=== PATIENT | female | born 2000 | race American Indian/Alaskan Native ===

== ENCOUNTER 2021-05-30 10:29 | Emergency (ER) | payer SELFPAY ==
[2021-05-30] MEDS ORDERED: SULFAMETHOXAZOLE/TRIMETHOPRIM 800/160MG DS TAB PO ONE (16:09)
[2021-05-30] MEDS ORDERED: KETOROLAC 10 MG TAB PO ONE (16:09)
[2021-05-30] MEDS ORDERED: ACETAMINOPHEN W/CODEINE 300-30 MG TAB PO ONE (16:10)
--- NOTE | 2021-05-30 16:15 | Emergency Department Report ---
- General Chief complaint: Vaginal Bleeding Stated complaint: VAG BLEEDING Time Seen by Provider: 05/30/21 15:47 Source: patient Mode of arrival: Ambulatory Limitations: No Limitations - History of Present Illness Initial comments: 21-year-old black female with no past medical history presents to the emergency department for evaluation of vaginal pain. She states that for the past 2 to 3 days that she has been having pain in her vaginal area and feels like she has a growth on the vaginal wall. She denies injury or trauma, fever, drainage, and abdominal pain. MD complaint: abscess/boil -: Gradual, days(s) Location: genitals (2-3) Severity: severe Severity scale (0 -10): 10 Quality: aching Consistency: constant Worsens with: palpation, movement Treatments Prior to Arrival: none - Related Data Previous Rx's Medication Instructions Recorded Last Taken Type Acetaminophen/Codeine [Tylenol 1 tab PO Q6H PRN #12 tab 05/30/21 Unknown Rx /Codeine # 3 tab] Ketorolac [Toradol] 10 mg PO Q6H PRN #12 tab 05/30/21 Unknown Rx Sulfamethoxazole/Trimethoprim 1 each PO BID 10 Days #20 tab 05/30/21 Unknown Rx [Bactrim DS TAB] Allergies Allergy/AdvReac Type Severity Reaction Status Date / Time No Known Allergies Allergy Unverified 05/30/21 11:42 Abscess Boil HPI - HPI Chief Complaint: Vaginal Bleeding Stated Complaint: VAG BLEEDING Time Seen by Provider: 05/30/21 15:47 Home Medications: Previous Rx's Medication Instructions Recorded Last Taken Type Acetaminophen/Codeine [Tylenol 1 tab PO Q6H PRN #12 tab 05/30/21 Unknown Rx /Codeine # 3 tab] Ketorolac [Toradol] 10 mg PO Q6H PRN #12 tab 05/30/21 Unknown Rx Sulfamethoxazole/Trimethoprim 1 each PO BID 10 Days #20 tab 05/30/21 Unknown Rx [Bactrim DS TAB] Allergies/Adverse Reactions: Allergies Allergy/AdvReac Type Severity Reaction Status Date / Time No Known Allergies Allergy Unverified 05/30/21 11:42 ED Review of Systems ROS: Stated complaint: VAG BLEEDING Other details as noted in HPI Comment: All other systems reviewed and negative Constitutional: denies: chills, fever Respiratory: denies: shortness of breath, SOB with exertion, SOB at rest Cardiovascular: denies: chest pain, palpitations, dyspnea on exertion Gastrointestinal: denies: abdominal pain, nausea, vomiting Genitourinary: denies: urgency, dysuria, frequency, hematuria, discharge Musculoskeletal: denies: back pain Neurological: denies: headache, weakness ED Past Medical Hx - Medications Home Medications: Home Medications Medication Instructions Recorded Confirmed Last Taken Type Acetaminophen/Codeine [Tylenol 1 tab PO Q6H PRN #12 tab 05/30/21 Unknown Rx /Codeine # 3 tab] Ketorolac [Toradol] 10 mg PO Q6H PRN #12 tab 05/30/21 Unknown Rx Sulfamethoxazole/Trimethoprim 1 each PO BID 10 Days #20 tab 05/30/21 Unknown Rx [Bactrim DS TAB] ED Physical Exam - General Limitations: No Limitations General appearance: alert, in no apparent distress - Head Head exam: Present: atraumatic, normocephalic - Eye Eye exam: Present: normal appearance. Absent: conjunctival injection - Neck Neck exam: Present: normal inspection. Absent: tenderness, lymphadenopathy - Respiratory Respiratory exam: Absent: respiratory distress - Cardiovascular Cardiovascular Exam: Present: regular rate - GI/Abdominal GI/Abdominal exam: Present: soft, normal bowel sounds. Absent: distended, tenderness, guarding, rebound, rigid - External exam: Present: erythema, swelling - Expanded Exam Expanded image: 1 - Noted to have abscess to area that is mostly internal measuring 3.5 to 4 cm in diameter. Area noted to be erythematous, edematous, and tender to any palpation. No drainage noted. - Extremities Exam Extremities exam: Present: normal inspection, normal capillary refill. Absent: pedal edema, joint swelling, calf tenderness - Back Exam Back exam: Present: normal inspection. Absent: CVA tenderness (R), CVA tenderness (L) - Neurological Exam Neurological exam: Present: alert, oriented X3 - Psychiatric Psychiatric exam: Present: normal affect, normal mood - Skin Skin exam: Present: warm, dry, intact, normal color ED Course Vital Signs 05/30/21 11:42 Temperature 98.3 F Pulse Rate 89 Respiratory 18 Rate Blood Pressure 119/76 [Right] O2 Sat by Pulse 100 Oximetry ED Medical Decision Making - Medical Decision Making 21-year-old black female with no past medical history presents to the emergency department for evaluation of vaginal pain. She states that for the past 2 to 3 days that she has been having pain in her vaginal area and feels like she has a growth on the vaginal wall. She denies injury or trauma, fever, drainage, and abdominal pain. Exam consistent with perineal abscess. Abscess noted to be primarily to lower vaginal wall, so will try antibiotics only with no I&D secondary to placement. Patient without any acute distress and no signs of systemic infection noted. Patient will be discharged home on 10-day course of Bactrim along with Toradol and Tylenol 3 to use as needed for pain. She had her first doses of all medications while in the emergency department. She is advised to take medications as prescribed and follow-up with primary care provider or general surgery if no improvement or worsening symptoms. She is advised to return to the emergency department for any concerning symptoms. She verbalized understanding of and agreement with plan of care. Critical care attestation.: If time is entered above; I have spent that time in minutes in the direct care of this critically ill patient, excluding procedure time. ED Disposition Clinical Impression: Perineal abscess Disposition: 01 HOME / SELF CARE / HOMELESS Is pt being admited?: No Does the pt Need Aspirin: No Condition: Stable Instructions: Skin Abscess, [id number] Additional Instructions: Take medication as prescribed. Follow-up with primary care provider if no improvement or worsening symptoms. Return to the emergency department as needed. Prescriptions: Sulfamethoxazole/Trimethoprim [Bactrim DS TAB] 1 each PO BID 10 Days #20 tab Ketorolac [Toradol] 10 mg PO Q6H PRN #12 tab PRN Reason: Pain Acetaminophen/Codeine [Tylenol /Codeine # 3 tab] 1 tab PO Q6H PRN #12 tab PRN Reason: Pain , Severe (7-10) Referrals: KAILASH SALAZAR MD [Primary Care Provider] - 3-5 Days JEWEL SMITH DO [Staff Physician] - 3-5 Days Time of Disposition: 16:15
[2021-05-30 16:47] VITALS: BP 124/86
== END 2021-05-30 16:45 | disposition home or self-care (01) ==
LOC: ED 10:29
DX: L02.215 Cutaneous abscess of perineum (principal)
CPT/HCPCS: 99282; 99283

== ENCOUNTER 2021-06-01 18:29 | Emergency (ER) | payer SELFPAY ==
[2021-06-01] MEDS ORDERED: LIDOCAINE-MPF (1%) 10 MG/1 ML VIAL 5 ML INFILTRATI ONE (22:57)
[2021-06-01] MEDS ORDERED: CLINDAMYCIN 150 MG/ML VIAL 6 ML IM ONE (22:57)
--- NOTE | 2021-06-02 00:44 | Emergency Department Report ---
ED Female HPI - General Chief complaint: Skin/Abscess/Foreign Body Stated complaint: CYSTS ON PRIVATE AREA Time Seen by Provider: 06/01/21 22:54 Source: patient Mode of arrival: Ambulatory Limitations: No Limitations - History of Present Illness Initial comments: 21-year-old [place] female with metformin complaining of infection to her right groin area which been present for the past few days. States that she had a similar episode in the past. This time the area became more swollen. Spontaneously opened and expelled accidental amount of pus and then bleeding. Due to the continued bleeding she decided come to emerge department get the wound checked and see if antibiotics were required. She reports no fever, chills, sweats. No hematuria no dysuria. No nausea no vomit -: Gradual Radiation: suprapubic Severity: mild Quality: dull Consistency: constant Improves with: none Worsens with: none Are you Now?: No Associated Symptoms: denies: vaginal discharge, vaginal bleeding, abdominal pain, nausea/vomiting, loss of appetite, dysuria, hematuria, shortness of breath, syncope - Related Data Sexually active: No Previous Rx's Medication Instructions Recorded Last Taken Type Acetaminophen/Codeine [Tylenol 1 tab PO Q6H PRN #12 tab 05/30/21 Unknown Rx /Codeine # 3 tab] Sulfamethoxazole/Trimethoprim 1 each PO BID 10 Days #20 tab 05/30/21 Unknown Rx [Bactrim DS TAB] Clindamycin [Clindamycin CAP] 150 mg PO Q8HR #21 capsule 06/02/21 Unknown Rx Ketorolac [Toradol] 10 mg PO Q6H PRN #12 tab 06/02/21 Unknown Rx Allergies Allergy/AdvReac Type Severity Reaction Status Date / Time No Known Allergies Allergy Verified 06/01/21 19:21 ED Review of Systems ROS: Stated complaint: CYSTS ON PRIVATE AREA Other details as noted in HPI Comment: All other systems reviewed and negative ED Past Medical Hx - Past Medical History Previous Medical History?: No - Surgical History Past Surgical History?: No - Social History Smoking Status: Never Smoker - Medications Home Medications: Home Medications Medication Instructions Recorded Confirmed Last Taken Type Acetaminophen/Codeine [Tylenol 1 tab PO Q6H PRN #12 tab 05/30/21 Unknown Rx /Codeine # 3 tab] Sulfamethoxazole/Trimethoprim 1 each PO BID 10 Days #20 tab 05/30/21 Unknown Rx [Bactrim DS TAB] Clindamycin [Clindamycin CAP] 150 mg PO Q8HR #21 capsule 06/02/21 Unknown Rx Ketorolac [Toradol] 10 mg PO Q6H PRN #12 tab 06/02/21 Unknown Rx ED Physical Exam - General Limitations: No Limitations General appearance: alert, in no apparent distress - Head Head exam: Present: atraumatic, normocephalic - Eye Eye exam: Present: normal appearance - ENT ENT exam: Present: mucous membranes moist - Neck Neck exam: Present: normal inspection - Respiratory Respiratory exam: Present: normal lung sounds bilaterally. Absent: respiratory distress - Cardiovascular Cardiovascular Exam: Present: regular rate, normal rhythm. Absent: systolic murmur, diastolic murmur, rubs, gallop - GI/Abdominal GI/Abdominal exam: Present: soft, normal bowel sounds - External exam: Present: swelling - Expanded Exam Expanded Female exam: Absent: herpetic lesions, vulvar erythema, vulvar tenderness, foreign body image: 1 - Swelling to the labia majora in this region. Slight increase swelling to the lower aspect appears to be intruding on the area of Bartholin's. Bloody drainage from the region. When expressed no pus is even evacuated. When manipulating along the external border or or the vaginal os still no pus evacuated - Extremities Exam Extremities exam: Present: normal inspection - Back Exam Back exam: Present: normal inspection. Absent: CVA tenderness (R), CVA tenderness (L) - Neurological Exam Neurological exam: Present: alert, oriented X3, CN II-XII intact, normal gait - Psychiatric Psychiatric exam: Present: normal affect, normal mood - Skin Skin exam: Present: warm, dry, intact, normal color. Absent: rash ED Course Vital Signs 06/01/21 19:19 Temperature 100.6 F H Pulse Rate 103 H Respiratory 18 Rate Blood Pressure 104/65 [Left] O2 Sat by Pulse 100 Oximetry Critical care attestation.: If time is entered above; I have spent that time in minutes in the direct care of this critically ill patient, excluding procedure time. ED Disposition Clinical Impression: Bartholin's cyst Disposition: HOME / SELF CARE / HOMELESS Is pt being admited?: No Does the pt Need Aspirin: No Condition: Stable Instructions: Bartholin's Cyst Additional Instructions: Seen evaluate emergency department for infected cyst partners which is already draining but has some residual swelling. Upon expressing abdominal further pus was evacuated. Please be sure to keep wound clean with antibacterial soap and water and take the antibiotics their entirety and follow-up with your primary care doctor or [facility] in 2 to 3 days to reevaluate the area to ensure that the infection is improving Prescriptions: Clindamycin [Clindamycin CAP] 150 mg PO Q8HR #21 capsule Ketorolac [Toradol] 10 mg PO Q6H PRN #12 tab PRN Reason: Pain Referrals: [facility] [Provider Group] - 3-5 Days KAILASH SALAZAR MD [Primary Care Provider] - 2-3 Days
[2021-06-02 01:01] VITALS: BP 106/68
== END 2021-06-02 00:59 | disposition home or self-care (01) ==
LOC: ED 18:29
DX: N75.0 Cyst of Bartholin's gland (principal)
CPT/HCPCS: 96372; 99282; J0696; J3490